=== PATIENT | male | born 1955 | race Caucasian/White ===

== ENCOUNTER → 2024-01-06 15:37 | Outpatient (REF) | payer MEDICARE, SELFPAY | LOC: RAD 15:37 | PROVIDERS: ATTENDING PHYSICIAN Nurse Practitioner Adult Health | DX: M79.641 Pain in right hand (principal) | CPT/HCPCS: 73100; 73120 ==

== ENCOUNTER → 2024-02-03 11:36 | Outpatient (REF) | payer MEDICARE, SELFPAY | LOC: HWRAD 11:36 | PROVIDERS: ATTENDING PHYSICIAN Internal Medicine Cardiovascular Disease; FAMILY PHYSICIAN Nurse Practitioner Adult Health; REFERRING PHYSICIAN Physical Medicine & Rehabilitation | DX: E78.49 Other hyperlipidemia (principal) | CPT/HCPCS: 75571 ==

== ENCOUNTER → 2024-03-15 11:13 | Outpatient (REF) | payer MEDICARE, SELFPAY | LOC: HWRAD 11:13 | PROVIDERS: ATTENDING PHYSICIAN Registered Nurse Ambulatory Care; REFERRING PHYSICIAN Physical Medicine & Rehabilitation | DX: R79.89 Other specified abnormal findings of blood chemistry (principal) | CPT/HCPCS: 76770 ==

== ENCOUNTER → 2024-12-29 15:15 | Outpatient (REF) | payer MEDICARE, SELFPAY | LOC: HWRAD 15:15 | PROVIDERS: ATTENDING PHYSICIAN Nurse Practitioner Adult Health | DX: R05.1 Acute cough (principal) | CPT/HCPCS: 71046 ==

== ENCOUNTER → 2025-02-28 12:00 | Outpatient (REF) | payer MEDICARE, SELFPAY | LOC: DHSLP 12:00 | PROVIDERS: ATTENDING PHYSICIAN Nurse Practitioner Adult Health; FAMILY PHYSICIAN Internal Medicine Critical Care Medicine | DX: G47.30 Sleep apnea, unspecified (principal); R06.83 Snoring | CPT/HCPCS: 95800 ==